=== PATIENT | female | born 1990 | race Caucasian/White ===

== ENCOUNTER 2017-09-19 19:30 | Inpatient (IN) | payer BC ==
[2017-09-19] MEDS ORDERED: Penicillin G Potassium 5 MILLUNITS in Sodium Chloride 0.9% 100 ML IV ONE (21:51)
[2017-09-20] MEDS: Lactated Ringers 1,000 ML IV SCH ×4 (00:38→15:40)
[2017-09-20] MEDS ORDERED: Misoprostol 400 MCG (4 X 100 MCG TAB) RECTAL PRN (00:59)
[2017-09-20] MEDS ORDERED: Tranexamic Acid 1,000 MG in Sodium Chloride 0.9% 100 ML IV PRN (00:59)
[2017-09-20] MEDS ORDERED: Ondansetron 4 MG/2 ML SDV IV PRN (00:59)
[2017-09-20] MEDS ORDERED: Lactated Ringers 500 ML IV ONE (00:59)
[2017-09-20] MEDS ORDERED: Methylergonovine 0.2 MG/1 ML Amp IM PRN (00:59)
[2017-09-20] MEDS ORDERED: Lidocaine 1% 30 ML SDV INJECT PRN (00:59)
[2017-09-20] MEDS ORDERED: Carboprost Tromethamine 250 MCG/1 ML Amp IM PRN (00:59)
[2017-09-20] MEDS ORDERED: Acetaminophen 325 MG Tab PO PRN (00:59)
[2017-09-20] MEDS ORDERED: Sodium Chloride 0.9% 10 ML Syringe FLUSH PRN (00:59)
[2017-09-20] MEDS ORDERED: fentaNYL 100 MCG/2 ML SDV IVPUSH ONE ×2 (01:13→06:04)
[2017-09-20] MEDS ORDERED: Oxytocin/Normal Saline 30 UNIT/500 ML BAG IV SCH (01:15)
[2017-09-20] MEDS: Penicillin G Potassium 3 MILLUNITS in Sodium Chloride 0.9% 100 ML IV SCH ×2 (02:03→21:04)
[2017-09-20] MEDS ORDERED: Naloxone 2 MG/2 ML Syringe IVPUSH PRN (02:19)
[2017-09-20] MEDS ORDERED: diphenhydrAMINE 50 MG/ML SDV IVPUSH PRN (02:19)
[2017-09-20] MEDS ORDERED: ePHEDrine 50 MG/ML SDV IVPUSH PRN (02:19)
[2017-09-20] MEDS ORDERED: ceFAZolin 2 GM in Premix Bag 1 BAG IV ONE (02:21)
[2017-09-20] MEDS ORDERED: Citric Acid/Sodium Citrate Solution 30 ML Cup PO ONE (02:21)
[2017-09-20] MEDS ORDERED: Oxytocin/Normal Saline 60 UNIT/1,000 ML BAG ONE (02:21)
[2017-09-20] MEDS ORDERED: Ketorolac 30 MG/ML SDV IVPUSH SCH (02:30)
[2017-09-20] MEDS ORDERED: fentaNYL 100 MCG/2 ML SDV IVPUSH PRN (04:32)
[2017-09-20] MEDS: Simethicone 80 MG Tab.Chew PO SCH ×4 (09:19→20:41)
[2017-09-20] MEDS: Acetaminophen/oxyCODONE 325-5 MG Tab PO PRN ×3 (09:19→20:42)
[2017-09-20] MEDS: Ferrous Sulfate 325 MG Tab PO SCH (18:04)
[2017-09-20] MEDS: Prenatal Multivitamin with Calcium/Folic Acid/Iron Tab PO SCH (19:31)
[2017-09-20] MEDS: Docusate Sodium 100 MG Cap PO PRN (20:42)
[2017-09-20] MEDS: Ibuprofen 800 MG Tab PO PRN (20:42)
[2017-09-21] MEDS: Acetaminophen/oxyCODONE 325-5 MG Tab PO PRN ×3 (01:04→20:45)
[2017-09-21] MEDS: Simethicone 80 MG Tab.Chew PO SCH ×4 (09:17→20:45)
[2017-09-21] MEDS: Ferrous Sulfate 325 MG Tab PO SCH (09:18)
[2017-09-21] MEDS: Ibuprofen 800 MG Tab PO PRN ×2 (09:18→20:45)
[2017-09-21] MEDS: Prenatal Multivitamin with Calcium/Folic Acid/Iron Tab PO SCH (09:19)
[2017-09-21] MEDS: Docusate Sodium 100 MG Cap PO PRN ×2 (09:19→20:45)
--- NOTE | 2017-09-21 21:24 | PN ---
DATE: 09/21/2017 SUBJECTIVE: I am familiar with this patient as I have discussed her with Dr. Moctezuma previously and also I assisted on her section early in the morning, Friday a.m. In general, she is doing well today. She is tolerating her diet and has normal lochia flow. Denies any syncope or shortness of breath. She is ambulating well. Has not yet passed gas. OBJECTIVE: Vital Signs: Stable with her temperature of 99.2, and pulse of 93. Recent hemoglobin was 10.5 postoperatively. Abdomen: Soft and the nurses have recently changed her dressing after the patient's shower. Incision and staple line is clean. Extremities: Negative including negative Homans sign. IMPRESSION: Stable postoperative course. PLAN: She will continue with progressive ambulation and adequate oral hydration and continue to advance her diet. Dr. Moctezuma will likely discharge her home either on Friday or Friday. One more hemoglobin is pending. [facility] /[id number]
--- NOTE | 2017-09-22 07:58 | PN ---
DATE: 09/20/2017 SUBJECTIVE: The patient's contractions are getting stronger. She is breathing through them. She just recently got out of tub. OBJECTIVE: heart tones 150s to 120s with acceleration all the way up into the 180s. After vaginal exam, tocometer reveals contractions every 1.5 to 3 minutes apart. Vaginal exam reveals her to be 3 cm, 95% effaced, 0 station, vertex suspected. Artificial membranes done after discussion with the patient yielding copious amounts of clear fluid. ASSESSMENT AND PLAN: Intrauterine now at 39 and 2/7 weeks by 11 and 5/7 week ultrasound with active labor with contractions, cervical change, and GBS positive status with penicillin given, with impaired glucose tolerance and increasing blood pressures. We will continue to follow clinically and closely in regard to this, and G2, P0-0-1-0, now status post penicillin and artificial rupture of membranes. We will continue to follow clinically and closely. Please see orders for further details. Did discuss with the patient. She is requesting something for pain, most likely, we will proceed with Nubain IM. [facility] /[id number]
--- NOTE | 2017-09-22 08:02 | PN ---
DATE: 09/20/2017 SUBJECTIVE: The patient's contractions have been getting stronger. OBJECTIVE: Having undergone serial examinations, she has progressed 5 to 6 cm, and now is currently 7 cm and been there for approximately last 10 minutes. Tocometer reveals contractions every 1.5 to 2 minutes apart. heart tones have had some bradycardia with what appears to be occasional acceleration and then what appears to be some late decelerations. Prior to this, there was minimal variability and suspected late decelerations. I was called in regard to these. During serial exams with vaginal exams while I was in the room, during this time period IUPC and scalp electrode were placed to further delineate concerns with heart tones and decelerations and where they occurred with the contractions. after this bradycardia with late decelerations persisted. ASSESSMENT AND PLAN: Intrauterine , 39 and 2/7 weeks by 11 and 5/7 weeks' ultrasound, admitted in active labor with contractions and cervical change. With GBS positive status, penicillin given now x2 with impaired glucose tolerance in a G2, P0-0-1-0 with nonreassuring status. The team has been called. It has been asked to be set up. Initially, the PACKAGE DYE STAND LOADER was called for an intrathecal, but with nonreassuring status, we will proceed to the OR as soon as crew was ready and available. I did discuss with the patient and her male partner risks, benefits, alternatives, complications of the but not limited to infection; bleeding; damage to internal organs such as bowel, bladder, tubes, uterus, sometimes fetus; rarely needing a blood transfusion or further surgery; and rare maternal or . She understands and agrees to proceed. Verbal and written consent obtained. Questions were answered. We will proceed as soon as OR crew is ready and available. [facility] /[id number] [place]
[2017-09-22] MEDS: Prenatal Multivitamin with Calcium/Folic Acid/Iron Tab PO SCH (08:04)
[2017-09-22] MEDS: Docusate Sodium 100 MG Cap PO PRN (08:04)
[2017-09-22] MEDS: Ferrous Sulfate 325 MG Tab PO SCH (08:04)
[2017-09-22] MEDS: Ibuprofen 800 MG Tab PO PRN (08:04)
[2017-09-22] MEDS: Acetaminophen/oxyCODONE 325-5 MG Tab PO PRN (08:05)
--- NOTE | 2017-09-22 08:07 | PN ---
DATE: 09/20/2017 SUBJECTIVE: The patient's pain is under control with oral medications currently. She is status post primary low transverse with 2-layer uterine closure under general at approximately 3:00 a.m. earlier today. The patient, otherwise, has no immediate concerns. OBJECTIVE: Vital Signs: Temperature 99.1, heart rate 100, blood pressure 112/84, and respiratory rate 16. I's and O's reveal urine output of 500 mL noted at 4:30 this morning. Between 6:00 a.m. and 10:26 a.m., over 1200 mL of urine output was noted. We will follow closely. Lungs: Clear to auscultation bilaterally. Heart: S1 and S2. Regular rate and rhythm. Abdomen: Firm uterus, -3 below umbilicus. Aquacel dressing dry and intact. LABORATORY DATA: Labs reveal a white cell count of 17.9, hemoglobin 10.5, and platelets 176. ASSESSMENT AND PLAN: Postoperative day #0; status post primary low transverse C- section, 2-layer uterine closure, under general anesthesia with anemia of acute blood loss. Hemoglobin dropping down from 12.5 to 10.5 with hemorrhage with an EBL of 1100 mL. The patient is currently asymptomatic in terms of her anemia. We will follow closely. Continue pain medications as needed, and this was discussed with the patient. She understands and agrees. She also understands that Dr. Rodriguez will be covering in my absence over the weekend as well as Dr. Castillo for her baby. [facility] /[id number]
[2017-09-22] MEDS: Simethicone 80 MG Tab.Chew PO SCH (08:11)
--- NOTE | 2017-09-22 08:22 | HP ---
DATE: 09/19/2017 PATIENT IDENTIFICATION: Dinora Paige is a 27-year-old G2, P0-0-1-0 with intrauterine at 39-1/7 weeks by 11-7 weeks' ultrasound, who presents with contractions. HISTORY OF PRESENT ILLNESS: The patient states contractions started on date of admission, started in the morning around 11:00 a.m., worsened around 2:00 p.m., and has now worsened over time to the point that she has rated 7/10, felt in the lower abdomen, radiating to the back, coming every 2 minutes, and worsening over time. Nothing seems to make them better. She has had some minimal bloody show associated with. She denies any leaking of fluid. She has had good movement. To put this in context, she is GBS positive. Records were called for, reviewed as below, and supplemented by patient history. OBSTETRICAL HISTORY: 11/2016, had a spontaneous AB around 7 weeks. No D and C required. ANTEPARTUM LABS: ABO blood type O positive, negative antibody. Rubella immune. Syphilis antibody is nonreactive. Negative hepatitis B surface antigen, hep C, HIV, GC, and Chlamydia. Wet prep remarkable for yeast. One-hour GTT was 150 with 3-hour test being negative for gestational diabetes mellitus. Hemoglobin 11.7 during that time, and she is GBS positive, in the third trimester. ALLERGIES: None. MEDICATIONS: vitamins. 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 FAMILY HISTORY: Remarkable for hypercholesterolemia in father and mother as well as hypertension. Negative family history of anesthesia problems, bleeding problems, or defects. SOCIAL HISTORY: No alcohol. No tobacco or drug use during this . She is to Armando since 2013. [place]. He works in agronomy and farms with his step dad and brothers. 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 They have 1 dog. REVIEW OF SYSTEMS: Otherwise, reviewed and felt to be noncontributory. The patient denies any headaches, visual changes, or upper abdominal pain. She denies any swelling currently. She denies any problems with bowel or bladder habits. OBJECTIVE: Vital Signs: Blood pressure 136/87, temperature 98.7, and heart rate 85. Appearance: Female appears her stated age, acting appropriate for age, nontoxic appearance. Breathing through contractions, but answering questions appropriately in between. HEENT: Head is atraumatic. EOMs intact. PERRLA. No scleral icterus. No sore throat. Mucous membranes are moist. Neck: No obvious tenderness. Lungs: Clear to auscultation bilaterally. No increased work of breathing. Heart: S1 and S2. Regular rate and rhythm. Abdomen: Gravid, Jason's indeterminate, nontender, and nondistended. Bowel sounds positive. No other organomegaly, pulsatile masses, or obvious hernias. No rebound, rigidity, or guarding. Genitourinary: Normal external female genitalia. Normal position and presentation of the urethra. The vaginal exam reveals to be 2+ cm, 85% effaced, -1 station, vertex suspected. Bulging bag of water felt, which has changed from nurse evaluation approximately 2 hours prior, where she was more around 25% effaced and 1 to 1.5 cm. Extremities: No peripheral edema. Deep tendon reflexes 2 to 3/4 bilaterally and symmetric in lower extremities. Psychiatric: Mood and affect are congruent. Judgment and insight are intact. Skin: Without any cyanosis, clubbing, or jaundice. DIAGNOSTIC DATA: heart tones, baseline in the 130s to 135 range, felt to be reassuring. Tocometer reveals contractions every 1-1/2 to 3 minutes. ASSESSMENT: 1. Intrauterine at 39-1/7 weeks by 11-5/7 weeks' ultrasound. 2. Labor with contractions and cervical change. 3. Group B Streptococcus positive status. We will start penicillin at this point in time and follow closely. 4. Impaired glucose tolerance. 5. Increasing blood pressures, not in hypertensive range, but we will need to follow closely. May need further evaluation and workup as well. 6. 2, para 0-0-1-0. PLAN: At the current time of dictation, we will place the patient on penicillin, reevaluate her in a few hours after penicillin is in, and if she continues to have cervical change, admit and follow clinically and closely thereafter. Please see further dictations for further details. [facility] /[id number]
--- NOTE | 2017-09-22 08:25 | OBOUT ---
DATE: 09/19/2017 DATE AND TIME OF NST: 09/19/2017 at 2030 hours to 2045 hours. REASON FOR NST: 1. Intrauterine at 39-1/7 weeks by 11-5/7 weeks' ultrasound. 2. Active labor, suspected with contractions and cervical change. 3. GBS positive status. 4. Impaired glucose tolerance. 5. Increasing blood pressures, non-hypertensive range at this point in time. 6. G2, P0-0-1-0. NST INTERPRETATION: During this time period, heart tone baseline is approximately 125 to 130 and there are at least two 15 x 15 beats per minute accelerations making this strip reactive. It is also noted to be reassuring. Tocometer reveals potential of 7 contractions, which the patient feels and breathing through. ASSESSMENT: 1. Nonstress test, reactive and reassuring. 2. Tocometer with contractions. PLAN: Please see admit history and physical for further details/other OB outpatient note. [facility] /[id number]
--- NOTE | 2017-09-22 08:38 | OR ---
DATE: 09/20/2017 PREOPERATIVE DIAGNOSES: 1. Intrauterine at 39 and 2/7 weeks by 11 and 5/7 weeks' ultrasound. 2. Nonreassuring status. 3. Abruption suspected with increasing abdominal pain and increased vaginal bleeding. 4. Active labor with contractions and cervical change upon admit. 5. Group B Streptococcus positive status. Penicillin given x2 prior to delivery. 6. Impaired glucose tolerance. 7. Increasing blood pressures on admission, not consistent with hypertension. 8. 2, para 0-0-1-0. POSTOPERATIVE DIAGNOSES: 1. Intrauterine at 39 and 2/7 weeks by 11 and 5/7 weeks' ultrasound, delivered. 2. Nonreassuring status. 3. Abruption suspected with increasing abdominal pain and increased vaginal bleeding. 4. Active labor with contractions and cervical change upon admit. 5. Group B Streptococcus positive status. Penicillin given x2 prior to delivery. 6. Impaired glucose tolerance. 7. Increasing blood pressures on admission, not consistent with hypertension. 8. 2, para 0-0-1-0. 9. OP presentation. 10.Cord wraps near the shoulder, reduced bluntly at delivery. PROCEDURE PERFORMED: NST on 09/19/2017 date of admission and subsequently artificial rupture of membranes and primary low transverse with 2- layer uterine closure on 09/20/2017. DOPE MAINTENANCE WORKER: Micah Rodriguez MD. ANESTHESIA: General. ESTIMATED BLOOD LOSS: 1100 mL. INTRAVENOUS FLUIDS: 300 mL of Pitocin and 1000 mL lactated Ringer's. URINE OUTPUT: 250 mL of clear yellow. START: 0254 hours. UTERINE INCISION: 0255 hours. DELIVERY: 0256 hours. STOP: 0338 hours. FINDING: Male. scores 8 and 9. Weight pending. DESCRIPTION OF PROCEDURE IN DETAIL: After proper consent was obtained, the patient was brought to the operating room, and nurses noted prior to leaving to go to the operating room that she was still 7 cm with vaginal exam and noted to have increasing vaginal bleeding and increasing abdominal pain outside of her contractions on the left side. She was subsequently wheeled to the operating room. A Allen was placed prior on the OB floor under sterile conditions. When she got to the operating room, heart tones were obtained between 90 and 100, and decision was made to proceed with general anesthesia with concerns of nonreassuring status and abruption suspected. The patient was placed in supine position, left lateral tilt. Prepped and draped in normal sterile fashion. Subsequently, general anesthesia was induced. A skin incision was then made on lower abdomen in a transverse Pfannenstiel-type fashion. This was carried down the fascia and scored in midline. Subcutaneous tissue was raked laterally bluntly. Fascial incision was then extended superiorly, inferiorly, and laterally bluntly. Rectus muscles were in the midline with blunt technique. Abdominal cavity was entered in blunt technique. Incision was extended superiorly and inferiorly with blunt technique. Freddy O large retractor was then introduced and used. The lower uterine segment was identified, and a curvilinear incision was made on lower uterine segment at 0255 hours. Uterus was entered sharply. Clear fluid returned. Uterine incision was then extended in a transverse fashion using blunt technique. vertex was then delivered through the incision in an OP presentation with cord wrapped around the shoulder. This was reduced bluntly, and was delivered through the incision. Mouth and nares were suctioned. Cord was doubly clamped and cut, and the was brought to team. Then, approximately 10 mL of cord blood was obtained for labs. Placenta was then delivered with gentle cord traction and fundal massage. Uterine cavity was cleared of all blood clots and debris with lap sponge. Charles clamps were then used to grasp the incision, and significant bleeding was noted in the left lateral portion. Stitches were placed over this area attempting to incorporate the uterine wall. There was some asymmetry noted over this area with further inspection. Uterus was then exteriorized for better visualization. These stitches were removed to incorporate the uterine incision while maintaining hemostasis. Uterus was then closed in a running locked fashion and tied at lateral margins with 1-0 Vicryl. Second imbricating layer was then applied. First inspection of the uterine incision revealed hemostasis. Posterior cul-de-sac was then irrigated copiously, and all blood clots and debris removed. Second inspection of uterine incision revealed hemostasis and uterus returned to the abdomen. Freddy O retractor was then removed, and paracolic gutters were then irrigated copiously, and all blood clots and debris removed. The anterior cul-de-sac was then irrigated copiously, and all blood clots were removed. Then, third and final inspection of the uterine incision and anterior cul-de-sac revealed hemostasis. Rectus muscles were then reapproximated in midline with [id number] stitch using 1-0 Vicryl. Subfascial tissue was found to be hemostatic. Fascia was closed in a running fashion and tied at lateral margin with 0 looped PDS. Subcutaneous tissue was irrigated copiously. Hemostasis reassured. Skin edges were reapproximated with medium [place]. Sterile Aquacel dressing was applied. Uterine fundus was firm and massaged at the conclusion of the case, -2 below umbilicus. No immediate complications were noted. Sponge, lap, and needle counts were correct. The patient received 2 g of Ancef preoperatively, Pitocin per protocol, and we will defer Toradol at the conclusion of the case at the current time of dictation. Mother and infant are currently stable at the time of dictation. [facility] /[id number]
--- NOTE | 2017-09-22 09:11 | DISCH ---
PATIENT ADMITTED ON 09/19/2017 ADMITTING DIAGNOSES: 1. Intrauterine at 39-1/7 weeks by 11-5/7 weeks' ultrasound. 2. Active labor with contractions and cervical change. 3. Group B Streptococcus positive status. 4. Impaired glucose tolerance. 5. Increasing blood pressures. 6. 2, para 0-0-1-0. DISCHARGE DIAGNOSES: 1. Intrauterine at 39-2/7 weeks by 11-5/7 weeks' ultrasound, delivered. 2. Active labor with contractions and cervical change. 3. Group B Streptococcus positive status. 4. Impaired glucose tolerance. 5. Increasing blood pressures. 6. 2, para 0-0-1-0. 7. Nonreassuring status. 8. Abruption, suspected. 9. Occipitoposterior presentation. 10.Cord wrapped around the shoulder region reduced bluntly at delivery. 11. hemorrhage with an estimated blood loss 1100 mL. PROCEDURE PERFORMED: NST followed by artificial rupture of membranes, followed by primary low transverse with 2-layer uterine closure on 09/20/2017. Procedure performed by Edinson Moctezuma MD HISTORY OF PRESENT ILLNESS: Please see H and P. SUMMARY OF HOSPITAL COURSE: The patient was admitted on the above date with above diagnoses in active labor with contractions and cervical change. Penicillin was started. She was given 2 doses prior to delivery. She underwent NST followed by artificial rupture of membranes, followed closely thereafter, had nonreassuring status with abruption suspected, and underwent a primary low transverse with 2-layer uterine closure under general anesthesia with an EBL of 1100 mL yielding a male, scores 8 and 9, weighing 8 pounds 1 ounce (3660 g). Please see operative note for further details. Postoperative day #1, please see progress note. Postoperative day #2, date of discharge, the patient tolerating POs, ambulating, urinating, and passing flatus, requesting discharge. DISCHARGE PHYSICAL EXAMINATION: Vital Signs: Last set of vitals were updated and listed in the chart. Temperature 98, heart rate 84, blood pressure 131/84, and respiratory rate 16. Lungs: Clear to auscultation bilaterally. Heart: S1 and S2. Regular rate and rhythm. Pelvic: Firm uterus, -2 below umbilicus. Skin incision appears dry and intact. Extremities: No obvious peripheral edema. No calf pain. LABORATORY DATA: On 09/20/2017, white cell count 17.9, hemoglobin 10.5, and platelets 176. CONDITION ON DISCHARGE COMPARED TO CONDITION ON ADMISSION: Improved. DISCHARGE INSTRUCTIONS: 1. Diet: As tolerated. 2. Activity: No lifting more than 20 pounds, no sit-ups or straining, and pelvic rest for the next 6 weeks with immediate return to fertility was discussed with the patient. 3. Reason to return or go to the emergency room was discussed with the patient in detail to include, but not limited to, temperature greater than 100.4, foul-smelling discharge red or hot breasts, increased vaginal bleeding, or increasing drainage, redness, or pain around the incision, as well as headaches, visual changes, or upper abdominal pain. DISCHARGE MEDICATIONS: 1. [id number]-frddmmk ibuprofen for pain. 2. Percocet 5/325 mg 1 to 2 q.6 hours p.r.n., #15, no refills. Discussed the use of medication, want side effects as well as precautions with driving. 3. Colace 100 mg b.i.d. p.r.n. constipation. 4. Iron sulfate 325 mg b.i.d. x6 weeks, dispensed q.s., no refills. Breast pump will be written for as well. FOLLOWUP: Follow up on 09/25/2017 for staple removal. I did discuss with the patient in the interim reasond to go to the emergency room in regard to her as well, as well as ramifications of not doing so. [facility] /[id number]
[2017-09-22] MEDS ORDERED: Neostigmine Methylsulfate 10 MG/10 ML MDV IV ONE (12:14)
[2017-09-22] MEDS ORDERED: Glycopyrrolate 0.2 MG/ML 2 ML SDV IV ONE (12:14)
[2017-09-22] MEDS ORDERED: Succinylcholine 200 MG/10 ML MDV IV ONE (12:14)
[2017-09-22] MEDS ORDERED: fentaNYL 100 MCG/2 ML SDV IV ONE (12:14)
[2017-09-22] MEDS ORDERED: Oxytocin/Normal Saline 30 UNIT/500 ML BAG IV ONE (12:14)
[2017-09-22] MEDS ORDERED: Lactated Ringers 1,000 ML IV ONE (12:14)
[2017-09-22] MEDS ORDERED: Morphine PF 1 MG/ML Amp ONE (12:14)
[2017-09-22] MEDS ORDERED: Propofol 200 MG/20 ML SDV IV ONE (12:14)
[2017-09-22] MEDS ORDERED: Rocuronium 50 MG/5 ML Vial IV ONE (12:14)
[2017-09-22] MEDS ORDERED: Midazolam 1 MG/ML 2 ML SDV IV ONE (12:14)
== END 2017-09-22 12:15 | disposition home or self-care (01) | DRG 540 ==
LOC: DL.OBCHECK 19:30 → DL.MS 23:59 → OBSVTOIN 09-20 02:56 → DL.OB 09-20 03:09
PROVIDERS: ADMIT Family Medicine; ATTEND Family Medicine
PROC: 4A0HX4Z Measurement of Products of Conception, Cardiac Electrical Activity, External Approach (ICD-10-PCS; 2017-09-19)
PROC: 10D00Z1 Extraction of Products of Conception, Low, Open Approach (ICD-10-PCS; principal; 2017-09-20)
PROC: 10907ZC Drainage of Amniotic Fluid, Therapeutic from Products of Conception, Via Natural or Artificial Opening (ICD-10-PCS; 2017-09-20)
DX: O76 Abnormality in fetal heart rate and rhythm complicating labor and delivery (principal); Z3A.39 39 weeks gestation of pregnancy; Z37.0 Single live birth; O45.93 Premature separation of placenta, unspecified, third trimester; O99.824 Streptococcus B carrier state complicating childbirth; O99.814 Abnormal glucose complicating childbirth; O72.1 Other immediate postpartum hemorrhage; O26.893 Other specified pregnancy related conditions, third trimester; R03.0 Elevated blood-pressure reading, without diagnosis of hypertension; O69.9XX0 Labor and delivery complicated by cord complication, unspecified, not applicable or unspecified
CPT/HCPCS: 36415; 51702; 84443; 85025; 85027; 86850; 86900; 86901; A9270-GY; J0330; J0690; J2250; J2274; J2405; J2540; J2590; J2704; J2710; J3010; J3490; J7050; J7120

== ENCOUNTER 2019-05-16 09:39 | Emergency (ER) | payer BC ==
[2019-05-16] MEDS ORDERED: Penicillin G Benzathine/Procaine 600-600 1.2 Millunits/2 ML Syringe IM ONE (10:59)
--- NOTE | 2019-05-16 11:02 | EDM.PDOC ---
Scribed by Antonia Ohara 05/16/19 1102 for Donavon Jean Baptiste MD ED HPI GENERAL MEDICAL PROBLEM - General Chief Complaint: ENT Problem Stated Complaint: SORE THROAT Time Seen by Provider: 05/16/19 10:38 Source of Information: Reports: Patient, RN, RN Notes Reviewed History Limitations: Reports: No Limitations - History of Present Illness INITIAL COMMENTS - FREE TEXT/NARRATIVE: Patient arrives to ER by POV with complaint of sore throat and fever. She got sick yesterday. She admits to mild frontal headache. Denies nausea, vomiting or abdominal pain. Denies rash. Onset Date: 05/15/19 Duration: Getting Worse Location: Reports: Other (throat) Quality: Reports: Ache Severity: Mild Improves with: Reports: None Worsens with: Reports: None Associated Symptoms: Reports: No Other Symptoms - Related Data Allergies Allergy/AdvReac Type Severity Reaction Status Date / Time No Known Allergies Allergy Verified 09/19/17 21:51 Past Medical History HEENT History: Reports: None Cardiovascular History: Reports: None Respiratory History: Reports: None Gastrointestinal History: Reports: None Genitourinary History: Reports: None LOAN BROKER History: Reports: Musculoskeletal History: Reports: None Neurological History: Reports: None Psychiatric History: Reports: None Endocrine/Metabolic History: Reports: Other (See Below) Other Endocrine/Metabolic History: abnormal TSH Hematologic History: Reports: None Immunologic History: Reports: None Oncologic (Cancer) History: Reports: None Dermatologic History: Reports: Melanoma, Other (See Below) Other Dermatologic History: melanoma of ear - Infectious Disease History Infectious Disease History: Reports: None - Past Surgical History Head Surgeries/Procedures: Reports: None Social & Family History - Family History Family Medical History: Noncontributory - Caffeine Use Caffeine Use: Reports: None ED ROS GENERAL - Review of Systems Review Of Systems: Comprehensive ROS is negative, except as noted in HPI. ED EXAM, GENERAL - Physical Exam Exam: See Below Exam Limited By: No Limitations General Appearance: Alert, WD/WN, No Apparent Distress Throat/Mouth: Normal Lips, Normal Teeth, Normal Gums, No Airway Compromise, Other (pharyngeal erythema. Tosnillar erythema with swelling and exudates. ) Head: Atraumatic, Normocephalic Neck: Normal Inspection Respiratory/Chest: No Respiratory Distress Cardiovascular: Regular Rate, Rhythm, Tachycardia Course - Orders/Labs/Meds Orders: Active Orders 24 hr Category Date Time Status INFLUENZA A+B AG SCREEN [RM] Stat Lab 05/16/19 10:32 Received Labs: Rapid strep: Positive. Meds: Medications Discontinued Medications Generic Name Dose Route Start Last Admin Trade Name Remington PRN Reason Stop Dose Admin Penicillin G Procaine/Benzathine 1.2 millunits 05/16/19 10:59 Bicillin C-R 600/600 IM 05/16/19 11:00 ONETIME ONE Departure - Departure Time of Disposition: 11:00 Disposition: Home, Self-Care 01 Condition: Good Clinical Impression: Strep pharyngitis, Tonsillitis - Discharge Information *PRESCRIPTION DRUG MONITORING PROGRAM REVIEWED*: Not Applicable *COPY OF PRESCRIPTION DRUG MONITORING REPORT IN PATIENT [place]: Not Applicable Instructions: Tonsillitis, Ohhy-[id number], Strep Throat, [id number]-[id number] Forms: ED Department Discharge Additional Instructions: RX: Zithromax 500mg. RX: Prednisone 20mg. Frequent salt flores until sore throat improves. Over the counter Chloraseptic spray or lozenges as needed. Follow up in clinic if not improving in 3 days. Sepsis Event Note - Focused Exam Date Exam was Performed: 05/16/19 Time Exam was Performed: 11:02 - My Orders Last 24 Hours: My Active Orders 05/16/19 10:32 INFLUENZA A+B AG SCREEN [RM] Stat - Assessment/Plan Last 24 Hours: My Active Orders 05/16/19 10:32 INFLUENZA A+B AG SCREEN [RM] Stat I have read and agree with the documentation that has been completed regarding this visit. By signing this record, I attest that the documentation was completed in my physical presence and is an accurate record of the encounter.
== END 2019-05-16 11:45 | disposition home or self-care (01) ==
LOC: DL.ED 09:39
DX: J02.0 Streptococcal pharyngitis (principal)
CPT/HCPCS: 87430; 87804; 96372; 99283; J0558

== ENCOUNTER 2020-04-05 22:13 | Inpatient (IN) | payer BC ==
[2020-04-05] MEDS: Lactated Ringers 1,000 ML IV SCH ×2 (23:25→23:55)
[2020-04-05] MEDS ORDERED: Citric Acid/Sodium Citrate Solution 30 ML Cup PO ONE (23:42)
[2020-04-05] MEDS ORDERED: ceFAZolin 2 GM in Premix Bag 1 BAG IV ONE (23:42)
[2020-04-05] MEDS ORDERED: Sodium Chloride 0.9% 10 ML Syringe FLUSH PRN (23:42)
[2020-04-05] MEDS ORDERED: Tranexamic Acid 1,000 MG in Sodium Chloride 0.9% 100 ML IV PRN (23:42)
[2020-04-05] MEDS ORDERED: Oxytocin/Normal Saline 30 UNIT/500 ML BAG IV SCH (23:45)
[2020-04-05] MEDS ORDERED: Lactated Ringers 1,000 ML IV SCH (23:45)
[2020-04-05] MEDS ORDERED: Oxytocin/Normal Saline 60 UNIT/1,000 ML BAG ONE (23:55)
[2020-04-06] MEDS ORDERED: Tranexamic Acid 1,000 MG in Sodium Chloride 0.9% 100 ML IV PRN (00:12)
[2020-04-06] MEDS ORDERED: Acetaminophen 325 MG Tab PO PRN (00:12)
[2020-04-06] MEDS ORDERED: Acetaminophen/oxyCODONE 325-5 MG Tab PO PRN (00:12)
[2020-04-06] MEDS ORDERED: diphenhydrAMINE 50 MG/ML SDV IVPUSH PRN (00:12)
[2020-04-06] MEDS ORDERED: Misoprostol 400 MCG (4 X 100 MCG TAB) RECTAL PRN (00:12)
[2020-04-06] MEDS ORDERED: ePHEDrine 50 MG/ML SDV IVPUSH PRN (00:12)
[2020-04-06] MEDS ORDERED: Naloxone 2 MG/2 ML Syringe IVPUSH PRN (00:12)
[2020-04-06] MEDS ORDERED: Ondansetron 4 MG/2 ML SDV IVPUSH PRN (00:12)
[2020-04-06] MEDS ORDERED: Methylergonovine 0.2 MG/1 ML Amp IM PRN (00:12)
[2020-04-06] MEDS ORDERED: Carboprost Tromethamine 250 MCG/1 ML Amp IM PRN (00:12)
[2020-04-06] MEDS ORDERED: Lactated Ringers 1,000 ML IV SCH (00:15)
--- NOTE | 2020-04-06 00:59 | OBOUT ---
DATE: 04/05/2020 PROCEDURE: Contraction stress test. INDICATION FOR TEST: The patient presents with regular contractions, concern for labor, and requires evaluation due to history of prior section. REPORT: Baseline heart rate 130 beats per minute with moderate beat-to- beat variability. Accelerations noted. No worrisome decelerations. [place] shows contractions every 1-1/2 to 2 minutes. INTERPRETATION: Category 1 reactive and reassuring contraction stress test. [facility] [place] /[id number] GILBERT
--- NOTE | 2020-04-06 01:20 | HP ---
CHIEF COMPLAINT: Regular contractions, getting stronger and closer together. HISTORY OF PRESENT ILLNESS: A 29-year-old, 3, now para 1-0-1-1, currently at 37-6/7 weeks' gestation, presents to Labor and Delivery reporting contractions started around 4 o'clock in the afternoon and she tried the typical measures of having a light snack, putting her feet up, relaxing and resting at home. However, at 8 o'clock this evening the contractions suddenly became more forceful and stronger, so she eventually made her way into the Labor and Delivery unit for further evaluation, reporting that she hesitated coming in initially because she wanted to make sure she was really in labor and not to be sent home with false labor. She has had good movement. No vaginal bleeding or leakage of fluid. No symptoms of preeclampsia and denies any acute concerns. records from [facility] are available and reviewed with her and she denies significant problems with this . She had some hyperemesis gravidarum and reports they tried everything for her and the best thing that worked for her was Zofran. Otherwise, labs show blood type O positive, antibody screen negative, rubella immune, syphilis negative, hepatitis B negative, HIV negative, gonorrhea and chlamydia negative. TSH 0.35, recheck 0.04. Hepatitis C negative. Wet prep negative. 1-hour glucose tolerance test of 81. Last hemoglobin was 12.7 on 01/27/2020, and platelets of 195. Group B Strep test was done at the hospital and negative when she had presented with contractions at 36 weeks and she was sent home undelivered. Prior noted for placental abruption, non-reassuring status, hemorrhage, and required a for delivery due to status. 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 PAST SURGICAL HISTORY: section x1 on 09/20/2017. She has also had a finger surgery and excision of the melanoma of the right ear with lymph node biopsy that was clear. FAMILY HISTORY: Mother and father are alive and have hypertension and hyperlipidemia. The patient reports family history is otherwise negative and noncontributory. Specifically, no history of any anesthesia problems, bleeding problems, or defects. SOCIAL HISTORY: The patient is and works as a loan servicing representative at [employer]. Her Armando works as an manager convention and farms with his stepfather and brothers. They have 1 dog and their son James, they are expecting a baby girl this . MEDICATIONS: vitamin 1 daily. ALLERGIES: No known drug allergies. REVIEW OF SYSTEMS: As noted above. No recent fever, chills, nausea, vomiting, chest pain, shortness of breath, new skin rashes, bowel or bladder complaints, headaches, blurry vision, hearing changes, or other acute concerns. PHYSICAL EXAMINATION: Vital Signs: Blood pressure 129/93, pulse of 89, she is afebrile. Head: Normocephalic, atraumatic. Ears, Eyes, Nose, Mouth: Within normal limits to gross inspection. Heart: Regular without obvious murmur. Lungs: Clear to auscultation bilaterally. Abdomen: Gravid, soft, nontender. Positive bowel sounds. Baby palpates vertex. monitoring strip shows baseline heart rate 130 beats per minute with moderate prym-to-krth variability and accelerations noted. [place] shows contractions every 1-1/2 to 2 minutes. Cervical exam is 1-1/2 cm dilated, 50% effaced, -2 station. Bulging bag of water is intact. Extremities: No edema, erythema, or tenderness noted. Skin: Warm, dry, and appropriate for race. LABORATORY DATA: COVID and CBC are currently pending. ASSESSMENT: 1. A 37-6/7 weeks' gestation in a 3, para 1-0-1-1. 2. Group B Streptococcus positive, rubella immune, blood type O positive. 3. History of x1. The patient had declined vaginal after . 4. History of placental abruption. 5. History of hemorrhage and did not require transfusion. EBL was 1100 mL at that time. 6. History of spontaneous x1. PLAN: Discussed indications, risks, benefits, and alternatives of repeat low transverse section with the patient and her . Their questions were answered and they agree to proceed. Consent details will be put into the operative report. Consent form was previously signed with Dr. Moctezuma in anticipation of surgery, but we will sign a new consent form due to change in physician and date. As soon as her COVID test is resulted and the surgical crew and my family readiness support assistant are here, we will proceed to the operating room. I did discuss with her potential risks to the baby as well and patient was comfortable with proceeding. CHARLENE /[id number] MTDD
--- NOTE | 2020-04-06 03:10 | OR ---
DATE: 04/06/2020 PREOPERATIVE DIAGNOSES: 1. 38-0/7 weeks' gestation. 2. 3, para 1-0-1-1. 3. History of section x1, and the patient declines trial of labor after . 4. Group B Streptococcus positive. 5. Blood type O positive and rubella immune. 6. History of placental abruption. 7. History of hemorrhage with estimated blood loss of 1100, did not require blood transfusion. 8. History of spontaneous x1. POSTOPERATIVE DIAGNOSES: 1. 38-0/7 weeks' gestation. 2. 3, para 1-0-1-1. 3. History of section x1, and the patient declines trial of labor after . 4. Group B Streptococcus positive. 5. Blood type O positive and rubella immune. 6. History of placental abruption. 7. History of hemorrhage with estimated blood loss of 1100, did not require blood transfusion. 8. History of spontaneous x1. 9. Status post repeat low transverse section without complications. BRIEF HISTORY: This 29-year-old female with the above-listed diagnoses presented to the hospital reporting contractions starting at 4:00 p.m. They became abruptly more severe and consistent at 8:00 p.m. and presented to Labor and Delivery with contractions every 1-1/2 to 2 minutes. Nurses tried to get things to settle down, but it was evident that contractions were not going to stop, and they were becoming more intense, and patient feeling more pelvic pressure. The cervix was 1.5 cm, 60%, -2 with bulging bag of water intact. Otherwise, the patient denies any other specific complaints. CONSENT: Discussed with the patient and her . Indication, risks, benefits, and alternatives of repeat low transverse section, due to the fact that she is currently in labor and has history of . Discussed injury to large blood vessels, nerves, veins, internal organs and adjacent structures including but not limited to, uterus, bladder, ureters, fallopian tubes, intestines, and any other adjacent structures, and that those would be repaired as discovered, and there would be potential for transfer to a larger facility if needed for any complex repairs, risk of bleeding to the point of requiring a blood transfusion as well as its inherent risks. Risk to the baby including injury or respiratory difficulties which may require NICU transfer for the baby is well. They verbalized understanding. Consent forms were signed. SURGEON: Celi Feldman MD. PEN TENDER: Andria Lind MD. DETAILS OF PROCEDURE: The patient was brought to the operating room and spinal anesthesia obtained. She was laid in the dorsal supine position with leftward tilt, and a Allen indwelling catheter was placed. The abdomen was prepped in the usual fashion and sterile drapes applied. The patient's skin was tested and skin incision made at 0041 and carried down through the subcutaneous tissues and into the fascia with cautery. The superior fascial edge was then grasped with Jaqueline's, tented up, and rectus muscles dissected off with traction and cautery. The inferior fascial edge was elevated and treated in similar fashion. The rectus muscles were in the midline bluntly, and peritoneal cavity entered with blunt dissection and traction. Freddy O retractor was then placed and the uterus inspected. A lower uterine segment was very well developed and thinned out. A bladder flap was then created, and a low-transverse uterine incision was made with scalpel; and once we got to the amniotic fluid membrane, the hysterotomy site was created with the Gill method. The baby was delivered at 0046. The baby's nose and mouth were bulb suctioned as she was being dried and stimulated. Three-vessel umbilical cord was doubly clamped and cut, and the baby taken to the warmer for further evaluation. Cord blood sample was then obtained and placenta delivered by gentle cord traction and concomitant uterine massage. There was noted to be an approximate 4 cm old clot or other dark green or brown in color, possibly related to old hemorrhage or infarct. The remainder of placenta appeared intact. The uterus was cleared of all clots and debris with dry lap sponge as well as ring forceps for trailing membranes. The cornu was were cleared because there was some retained membrane up in the right-sided cornu. The hysterotomy site was then closed with a running lock stitch of 0 Vicryl in the usual fashion. It was hemostatic. Therefore, a second layer was not needed. The Freddy retractor was removed and pericolic gutters were cleared of all clots and debris. The hysterotomy site was reinspected and remained hemostatic, and this layer irrigated. The peritoneal layer was then closed with a running stitch of 3-0 Vicryl with good approximation. The fascia layer was then closed with a running stitch of 0 looped PDS in the usual fashion. Subcutaneous tissues were irrigated, and the patient's anatomy surprisingly created a rather large gap across the incision site, so I reapproximated the subcutaneous tissues with 3-0 Vicryl and then closed the skin with a running subcuticular stitch of 4-0 Monocryl. Steri-Strips were then applied, and pressure dressing placed. The patient tolerated procedure well. ESTIMATED BLOOD LOSS: 400 mL. URINE OUTPUT: 65 mL. FLUID: 1600 mL of crystalloids and 250 mL with Pitocin. COMPLICATIONS: None. FINDINGS: Viable female scores of 8 and 9, weight 2965 g, 6 pounds 9 ounces, and length 19 inches. [facility] /[id number] MTDD
[2020-04-06] MEDS: Lactated Ringers 1,000 ML IV SCH (04:45)
[2020-04-06] MEDS: Ketorolac 30 MG/ML SDV IVPUSH SCH ×4 (07:00→20:06)
[2020-04-06] MEDS: Prenatal Multivitamin with Calcium/Folic Acid/Iron Tab PO SCH (10:57)
[2020-04-06] MEDS: Simethicone 80 MG Tab.Chew PO SCH ×4 (10:57→20:05)
[2020-04-06] MEDS ORDERED: Ondansetron 4 MG/2 ML SDV IV ONE (12:04)
[2020-04-06] MEDS ORDERED: Morphine PF 1 MG/ML Amp ITHECAL ONE (12:04)
[2020-04-06] MEDS ORDERED: Lactated Ringers 1,000 ML IV ONE (12:04)
[2020-04-06] MEDS ORDERED: Ketorolac 30 MG/ML SDV IVPUSH ONE (12:04)
[2020-04-06] MEDS ORDERED: Dexamethasone 4 MG/ML SDV IV ONE (12:04)
[2020-04-06] MEDS ORDERED: Sodium Bicarbonate 4.2% 2.5 MEQ/5 ML SDV ONE (12:04)
[2020-04-06] MEDS ORDERED: Oxytocin/Normal Saline 30 UNIT/500 ML BAG IV ONE (13:15)
[2020-04-06] MEDS: Docusate Sodium 100 MG Cap PO PRN (20:05)
[2020-04-07] MEDS: Ibuprofen 800 MG Tab PO PRN ×3 (07:36→23:01)
[2020-04-07] MEDS: Prenatal Multivitamin with Calcium/Folic Acid/Iron Tab PO SCH ×2 (07:36→10:21)
[2020-04-07] MEDS: Simethicone 80 MG Tab.Chew PO SCH ×5 (07:36→23:01)
[2020-04-07] MEDS: Docusate Sodium 100 MG Cap PO PRN ×2 (07:36→23:01)
[2020-04-07] MEDS: Acetaminophen/oxyCODONE 325-5 MG Tab PO PRN ×2 (08:08→17:17)
--- NOTE | 2020-04-07 12:11 | PN ---
DATE: 04/07/2020 Postop day #1 status post repeat low transverse . SUBJECTIVE: The patient is tolerating p.o., is ambulating, urinating, passing flatus. OBJECTIVE: Vital Signs: Temperature 98.6, heart rate 88, blood pressure 113/70, respiratory rate 16. Lungs: Clear to auscultation bilaterally. Heart: S1, S2. Regular rate and rhythm. Abdomen: Firm uterus around the umbilicus. Steri-Strips on the incision appears dry and intact. Extremities: Trace pedal edema. No calf pain. LABS: Yesterday, white cell count 11, hemoglobin 11.2 postoperatively compared to predelivery hemoglobin 12.4 and platelets 202. ASSESSMENT AND PLAN: Postop #1 status post repeat low transverse section. PLAN: We will continue to follow clinically and closely. Possible discharge tomorrow, and the patient is wondering about this. [facility] /[id number]
[2020-04-08] MEDS: Acetaminophen/oxyCODONE 325-5 MG Tab PO PRN (03:14)
[2020-04-08] MEDS: Prenatal Multivitamin with Calcium/Folic Acid/Iron Tab PO SCH (09:34)
[2020-04-08] MEDS: Docusate Sodium 100 MG Cap PO PRN (09:34)
[2020-04-08] MEDS: Ibuprofen 800 MG Tab PO PRN (09:35)
[2020-04-08] MEDS: Simethicone 80 MG Tab.Chew PO SCH (09:36)
--- NOTE | 2020-04-08 21:48 | DISCH ---
ADMIT DIAGNOSES: 1. Intrauterine , 37-6/7 weeks. 2. Contractions with labor. 3. History of section x1, request repeat low-transverse . 4. History of abruption with hemorrhage with previous delivery. 5. History of spontaneous . 6. 3, para 1-0-1-1. DISCHARGE DIAGNOSES: 1. Intrauterine , 37-6/7 weeks-delivered at 38 weeks on 04/06/2020, shortly after midnight. 2. Contractions with labor. 3. History of section x1, request repeat low-transverse . 4. History of abruption with hemorrhage with previous delivery. 5. History of spontaneous . 6. 3, para 1-0-1-1. HISTORY OF PRESENT ILLNESS: Please see H and P. SUMMARY OF HOSPITAL COURSE: The patient was admitted on the above date with the above diagnoses on late evening of 04/05/2020, and underwent repeat low- transverse on 04/06/2020. Please see operative report for further details. Postop day #1, please see progress note. Postop day #2, date of discharge, the patient was tolerating p.o., was ambulating, urinating, passing flatus, requesting discharge. PHYSICAL EXAMINATION: Vital Signs: Last set of vitals, temperature 98.9, heart rate 97, blood pressure 91/50 and 117/77, respiratory rate 14 to 18, O2 sats 99%. Lungs: Clear to auscultation bilaterally. Heart: S1, S2. Regular rate and rhythm. Abdomen: Firm uterus, -1 below umbilicus. Steri-Strips on the incision appears dry and intact as well as incision appearing dry and intact. Trace pedal edema. No calf pain. LABS: On postop day 0, approximately 10 hours after the surgery did reveal a white cell count of 11, hemoglobin 11.2 compared to predelivery hemoglobin of 12.4 and platelets of 202. CONDITION ON DISCHARGE COMPARED TO CONDITION ON ADMISSION: Improved. DISCHARGE INSTRUCTIONS: Diet as tolerated. Activity: No lifting more than 20 pounds. No sit-ups, straining. Pelvic rest for the next 6 weeks with immediate return to fertility discussed with the patient. Reasons to return or go to emergency room were discussed with the patient in detail including but not limited to temperature greater than 100.4, foul- smelling discharge, red hot, tender breasts or increased vaginal bleeding or increasing pain, drainage, or redness around the incision. DISCHARGE MEDICATIONS: Ieyo-nzh-museiga Tylenol or ibuprofen for pain, vitamins while breast feeding for 6 weeks, and Percocet 5/325 one to two q.6 hours p.r.n., #15, no refills. Discussed the use of this medication, adverse and unwanted effects, as well as precautions with driving, and Colace 100 mg b.i.d. p.r.n., #60, no refills. Followup on 04/10/2020 at the same time of her baby for incision check. I did discuss reason to return or go to emergency room with the patient and her in regard to her as well. We will follow up with baby as above. Please see discharge paperwork for further details as well. [facility] /[id number]
== END 2020-04-08 12:05 | disposition home or self-care (01) | DRG 540 ==
LOC: DL.OBCHECK 22:13 → DL.MS 23:34 → OBSVTOIN 04-06 00:46 → DL.OB 04-06 01:43 → DL.MS 04-07 12:58
PROVIDERS: ADMIT Family Medicine; ATTEND Family Medicine
PROC: 10D00Z1 Extraction of Products of Conception, Low, Open Approach (ICD-10-PCS; principal; 2020-04-06)
PROC: 4A1HXCZ Monitoring of Products of Conception, Cardiac Rate, External Approach (ICD-10-PCS; principal; 2020-04-06)
DX: O34.211 Maternal care for low transverse scar from previous cesarean delivery (principal); Z3A.37 37 weeks gestation of pregnancy; Z37.0 Single live birth; O99.824 Streptococcus B carrier state complicating childbirth; Z20.822 Contact with and (suspected) exposure to COVID-19
CPT/HCPCS: 01961; 36415; 59025; 85025; 85027; 86850; 86900; 86901; 94010; A9270-GY; J0690; J1100; J1200; J1885; J2274; J2405; J2590; J7120; U0002